=== PATIENT | female | born 1960 | race Caucasian/White ===

== ENCOUNTER 2019-07-26 11:06 | Emergency (ER) | payer OTHER ==
[~2019-07-26] VITALS: Ht 157.5 cm; Wt 101.2 kg
[2019-07-26 11:23] VITALS: Ht 157.5 cm; Wt 101.2 kg
[2019-07-26 12:20] LABS: BASOPHIL % 0.3 % (0-2); PLATELET COUNT 364 x10^3mcL (130-400); RED CELL DISTRIBUTION WIDTH 13.5 % (11.5-14.5)
[2019-07-26 12:33] LABS: CALCIUM 8.6 mg/dL (8.5-10.1); CARBON DIOXIDE 25.5 mmol/L (21-32); CHLORIDE SERUM 109 mmol/L (98-107); CREATININE SERUM 0.9 mg/dL (0.6-1.0); GFR1 > 60 mL/min; GLUCOSE SERUM 90 mg/dL (74-106); POTASSIUM SERUM 3.6 mmol/L (3.5-5.1); SODIUM SERUM 144 mmol/L (136-145)
[2019-07-26 12:37] LABS: ALBUMIN 3.6 g/dL (3.4-5.0); ALKALINE PHOSPHATASE 83 U/L (46-116); ALT/SGPT 24 U/L (14-59); AST/SGOT 22 U/L (15-37); BILIRUBIN TOTAL 0.2 mg/dL (0.20-1.00); TOTAL PROTEIN, SERUM 7.8 g/dL (6.4-8.2)
[2019-07-26 14:16] VITALS: BP 150/74
== END 2019-07-26 14:16 | disposition home or self-care (01) ==
LOC: ED 11:06
PROVIDERS: Emergency Medicine
DX: L03.116 Cellulitis of left lower limb (principal)
CPT/HCPCS: 36415; Q0092

== ENCOUNTER 2019-07-29 18:56 | Inpatient (IN) | payer OTHER ==
[~2019-07-29] VITALS: Ht 157.5 cm; Wt 104.8 kg
[2019-07-29 20:06] LABS: BASOPHIL % 0.6 % (0-2); PLATELET COUNT 395 x10^3mcL (130-400); RED CELL DISTRIBUTION WIDTH 13.9 % (11.5-14.5)
[2019-07-29 20:25] LABS: CALCIUM 8.6 mg/dL (8.5-10.1); CARBON DIOXIDE 24.1 mmol/L (21-32); CHLORIDE SERUM 110 mmol/L (98-107); CREATININE SERUM 0.9 mg/dL (0.6-1.0); GFR1 > 60 mL/min; GLUCOSE SERUM 99 mg/dL (74-106); POTASSIUM SERUM 4.2 mmol/L (3.5-5.1); SODIUM SERUM 143 mmol/L (136-145)
[2019-07-29 20:30] LABS: ALBUMIN 3.4 g/dL (3.4-5.0); ALKALINE PHOSPHATASE 76 U/L (46-116); ALT/SGPT 22 U/L (14-59); AST/SGOT 23 U/L (15-37); TOTAL PROTEIN, SERUM 7.7 g/dL (6.4-8.2)
[2019-07-29 20:50] LABS: BILIRUBIN TOTAL 0.1 mg/dL (0.20-1.00)
[2019-07-29 22:38] LABS: T3 TOTAL 1.19 ng/mL
[2019-07-29 22:46] LABS: FREE T4 0.92 ng/dL (0.76-1.46); FREE THYROXINE INDEX 2.3 ug/dL (1.4-4.5); T4(THYROXINE) 6.9 ug/dL (4.7-13.3)
[2019-07-29 22:51] VITALS: BP 150/38
[2019-07-30 04:18] LABS: BASOPHIL % 0.5 % (0-2); PLATELET COUNT 343 x10^3mcL (130-400); RED CELL DISTRIBUTION WIDTH 13.6 % (11.5-14.5)
[2019-07-30 04:22] LABS: CARBON DIOXIDE 23.1 mmol/L (21-32); CHLORIDE SERUM 112 mmol/L (98-107); CREATININE SERUM 0.8 mg/dL (0.6-1.0); GFR1 > 60 mL/min; GLUCOSE SERUM 101 mg/dL (74-106); PHOSPHOROUS 3.2 mg/dL (2.5-4.9); POTASSIUM SERUM 3.8 mmol/L (3.5-5.1); SODIUM SERUM 144 mmol/L (136-145)
[2019-07-30 05:33] VITALS: BP 130/61
[2019-07-30 08:01] VITALS: BP 148/57
[2019-07-30 11:49] VITALS: BP 112/47
[2019-07-30 14:33] VITALS: Ht 157.5 cm; Wt 104.8 kg
[2019-07-30 16:20] VITALS: BP 153/55
[2019-07-30 20:58] VITALS: BP 162/61
[2019-07-31 05:59] VITALS: BP 126/69
[2019-07-31 06:59] LABS: CALCIUM 8.3 mg/dL (8.5-10.1); CARBON DIOXIDE 27.4 mmol/L (21-32); CHLORIDE SERUM 107 mmol/L (98-107); CREATININE SERUM 0.7 mg/dL (0.6-1.0); GFR1 > 60 mL/min; GLUCOSE SERUM 100 mg/dL (74-106); PHOSPHOROUS 3.2 mg/dL (2.5-4.9); POTASSIUM SERUM 3.9 mmol/L (3.5-5.1); SODIUM SERUM 141 mmol/L (136-145)
[2019-07-31 07:00] LABS: BASOPHIL % 0.6 % (0-2); PLATELET COUNT 340 x10^3mcL (130-400); RED CELL DISTRIBUTION WIDTH 13.3 % (11.5-14.5)
[2019-07-31 08:09] VITALS: BP 167/60
[2019-07-31 12:04] VITALS: BP 150/75
[2019-07-31 15:51] VITALS: BP 165/69
[2019-07-31 20:06] VITALS: BP 133/56
[2019-08-01 04:43] VITALS: BP 167/79
[2019-08-01 07:32] VITALS: BP 144/63
[2019-08-01 07:34] LABS: BASOPHIL % 0.5 % (0-2); PLATELET COUNT 352 x10^3mcL (130-400); RED CELL DISTRIBUTION WIDTH 13.3 % (11.5-14.5)
[2019-08-01 08:57] LABS: CALCIUM 8.5 mg/dL (8.5-10.1); CARBON DIOXIDE 26.9 mmol/L (21-32); CHLORIDE SERUM 107 mmol/L (98-107); CREATININE SERUM 0.7 mg/dL (0.6-1.0); GFR1 > 60 mL/min; GLUCOSE SERUM 102 mg/dL (74-106); MAGNESIUM 2.1 mg/dL (1.8-2.4); PHOSPHOROUS 3.7 mg/dL (2.5-4.9); POTASSIUM SERUM 3.6 mmol/L (3.5-5.1); SODIUM SERUM 141 mmol/L (136-145)
[2019-08-01 11:49] VITALS: BP 136/70
[2019-08-01 17:55] VITALS: BP 152/80
[2019-08-01 19:29] VITALS: BP 129/55
[2019-08-02 04:32] VITALS: BP 133/69
[2019-08-02 06:56] LABS: CARBON DIOXIDE 27.1 mmol/L (21-32); CHLORIDE SERUM 106 mmol/L (98-107); CREATININE SERUM 0.7 mg/dL (0.6-1.0); GFR1 > 60 mL/min; GLUCOSE SERUM 108 mg/dL (74-106); POTASSIUM SERUM 3.7 mmol/L (3.5-5.1); SODIUM SERUM 141 mmol/L (136-145)
[2019-08-02 06:59] LABS: BASOPHIL % 0.6 % (0-2); RED CELL DISTRIBUTION WIDTH 13.5 % (11.5-14.5)
[2019-08-02 07:19] LABS: PLATELET COUNT 411 x10^3mcL (130-400)
[2019-08-02 07:50] VITALS: BP 153/69
[2019-08-02 11:17] VITALS: BP 137/53
[2019-08-02] MEDS ORDERED: CLEOCIN HCL150 MG PO (12:47)
[2019-08-02] MEDS ORDERED: HYDROCODONE BIT1 T51 PO ×2 (12:51→12:54)
[2019-08-02 13:34] VITALS: BP 137/53
[2019-08-02 15:27] VITALS: BP 143/57
[2019-08-03 05:57] VITALS: BP 137/56
[2019-08-03 07:32] LABS: BASOPHIL % 0.8 % (0-2); PLATELET COUNT 355 x10^3mcL (130-400); RED CELL DISTRIBUTION WIDTH 13.8 % (11.5-14.5)
[2019-08-03 07:54] VITALS: BP 145/65
[2019-08-03 08:29] LABS: CHLORIDE SERUM 108 mmol/L (98-107); CREATININE SERUM 0.7 mg/dL (0.6-1.0); GFR1 > 60 mL/min; GLUCOSE SERUM 99 mg/dL (74-106); POTASSIUM SERUM 3.8 mmol/L (3.5-5.1); SODIUM SERUM 144 mmol/L (136-145)
[2019-08-03] MEDS ORDERED: BACDS PO (10:37)
[2019-08-03] MEDS ORDERED: ACETAMINOPHEN-H1 TA1 PO (11:10)
[2019-08-03 11:29] VITALS: BP 137/53
== END 2019-08-03 11:53 | disposition home health service (06) | DRG 364 ==
LOC: ED 18:56 → MU 21:36
PROVIDERS: Emergency Medicine; Internal Medicine; ADMIT Internal Medicine
PROC: 0J9P0ZZ Drainage of Left Lower Leg Subcutaneous Tissue and Fascia, Open Approach (ICD-10-PCS; principal; 2019-08-02)
DX: L02.416 Cutaneous abscess of left lower limb (principal); N17.0 Acute kidney failure with tubular necrosis; L03.116 Cellulitis of left lower limb; M54.5 Low back pain; I10 Essential (primary) hypertension; E78.5 Hyperlipidemia, unspecified; Z68.41 Body mass index [BMI] 40.0-44.9, adult
CPT/HCPCS: 82962; 84439; 90732; 94150; 97116-GP; G0378; J1940; J2250; J2270; J2405; J3010; J3370; J3490; J7030; J7050; Q0092

== ENCOUNTER 2019-08-22 12:03 | Emergency (ER) | payer OTHER ==
[~2019-08-22] VITALS: Ht 157.5 cm; Wt 99.8 kg
[~2019-08-22 12:03] MED LIST: ACETAMINOPHEN-H1 TA1 PO; BACDS PO; CLEOCIN HCL150 MG PO; HYDROCODONE BIT1 T51 PO
[2019-08-22 12:13] VITALS: Ht 157.5 cm; Wt 99.8 kg
[2019-08-22 13:49] VITALS: BP 134/72
== END 2019-08-22 13:49 | disposition home or self-care (01) ==
LOC: ED 12:03
DX: L02.416 Cutaneous abscess of left lower limb (principal); G89.18 Other acute postprocedural pain; E78.00 Pure hypercholesterolemia, unspecified; Z88.0 Allergy status to penicillin; Z88.6 Allergy status to analgesic agent; Z48.01 Encounter for change or removal of surgical wound dressing
CPT/HCPCS: J2270; Q0162